=== PATIENT | female | born 1985 | race African-American/Black ===

== ENCOUNTER 2017-04-07 10:00 | Emergency (ER) | payer MEDICAID ==
[~2017-04-07] VITALS: Ht 154.9 cm; Wt 58.2 kg
[2017-04-07 12:22] LABS: HEMATOCRIT 35.3 % (34.6-47.8); HEMOGLOBIN 11.5 g/dL (11.7-16.4); WHITE BLOOD COUNT 5.4 x10^3/uL (3.4-10)
[2017-04-07 12:33] LABS: BLOOD UREA NITROGEN 10 mg/dL (7-18)
[2017-04-07 13:51] VITALS: BP 128/74
== END 2017-04-07 14:41 | disposition home or self-care (01) ==
LOC: ED 12:41
DX: N94.6 Dysmenorrhea, unspecified (principal)
CPT/HCPCS: 36415; 76830; 80048; 81003; 82040; 84703; 85025; 93005; 99285

== ENCOUNTER 2017-06-22 17:51 | Emergency (ER) | payer MEDICAID ==
[~2017-06-22] VITALS: Ht 154.9 cm; Wt 54.4 kg
[2017-06-22 18:29] LABS: MICROSCOPIC NOT IND
[2017-06-22 18:39] LABS: CULTURE INDICATED? NO
[2017-06-22 18:52] LABS: BASOPHILS # (AUTO) 0.03 x10^3/uL (0-0.1); BASOPHILS % (AUTO) 0 % (0-1); EOSINOPHILS # (AUTO) 0.01 x10^3/uL (0-0.4); EOSINOPHILS % (AUTO) 0 % (1-7); LYMPHOCYTES # (AUTO) 2.79 x10^3/uL (1-3.4); LYMPHOCYTES % (AUTO) 40 % (22-44); MD NO; MEAN CORPUSCULAR HEMOGLOBIN 26.5 pg (27.0-34.8); MEAN CORPUSCULAR HGB CONC 32.7 g/dL (32.4-35.8); MEAN CORPUSCULAR VOLUME 81.2 fL (80-100); MEAN PLATELET VOLUME 8.6 fL (7.4-10.4); MONOCYTES # (AUTO) 0.42 x10^3/uL (0.2-0.8); MONOCYTES % (AUTO) 6 % (2-9); NEUTROPHILS # (AUTO) 3.72 x10^3/uL (1.8-6.8); NEUTROPHILS % (AUTO) 53 % (42-75); PLATELET COUNT 360 x10^3/uL (130-400); RED BLOOD COUNT 4.39 x10^6/uL (3.82-5.3); RED CELL DISTRIBUTION WIDTH 17.2 % (9.6-15.2)
[2017-06-22 18:59] LABS: ALANINE AMINOTRANSFERASE 18 U/L (12-78); ALBUMIN 3.9 g/dL (3.4-5.0); ANION GAP 7 mmol/L (5-15); CHLORIDE 107 mmol/L (98-107); CREATININE 0.73 mg/dL (0.55-1.02)
[2017-06-22 19:03] LABS: ALKALINE PHOSPHATASE 66 U/L (45-117); BILIRUBIN,TOTAL 0.4 mg/dL (0.2-1.0); TOTAL PROTEIN 7.7 g/dL (6.4-8.2)
[2017-06-22 19:14] VITALS: BP 118/67
== END 2017-06-22 19:29 | disposition home or self-care (01) ==
LOC: ED 19:05
DX: R10.33 Periumbilical pain (principal); R10.2 Pelvic and perineal pain; Z87.891 Personal history of nicotine dependence
CPT/HCPCS: 36415; 76856; 80053; 81003; 84703; 85025; 99285

== ENCOUNTER 2017-10-31 12:01 | Emergency (ER) | payer MEDICAID ==
[~2017-10-31] VITALS: Ht 154.9 cm; Wt 52.8 kg
[2017-10-31 14:09] LABS: ALBUMIN 3.6 g/dL (3.4-5.0); ANION GAP 5 mmol/L (5-15); CALCIUM 8.4 mg/dL (8.5-10.1); CHLORIDE 109 mmol/L (98-107); CREATININE 0.68 mg/dL (0.55-1.02)
[2017-10-31 14:18] VITALS: BP 112/59
[2017-10-31 14:27] LABS: BASOPHILS # (AUTO) 0.03 x10^3/uL (0-0.1); BASOPHILS % (AUTO) 1 % (0-1); EOSINOPHILS # (AUTO) 0.02 x10^3/uL (0-0.4); EOSINOPHILS % (AUTO) 0 % (1-7); LYMPHOCYTES # (AUTO) 1.76 x10^3/uL (1-3.4); LYMPHOCYTES % (AUTO) 35 % (22-44); MD NO; MEAN CORPUSCULAR HEMOGLOBIN 26.4 pg (27.0-34.8); MEAN CORPUSCULAR HGB CONC 32.4 g/dL (32.4-35.8); MEAN CORPUSCULAR VOLUME 81.6 fL (80-100); MEAN PLATELET VOLUME 9.4 fL (7.4-10.4); MONOCYTES # (AUTO) 0.47 x10^3/uL (0.2-0.8); MONOCYTES % (AUTO) 9 % (2-9); NEUTROPHILS # (AUTO) 2.76 x10^3/uL (1.8-6.8); NEUTROPHILS % (AUTO) 55 % (42-75); PLATELET COUNT 302 x10^3/uL (130-400); RED BLOOD COUNT 4.53 x10^6/uL (3.82-5.3); RED CELL DISTRIBUTION WIDTH 16.2 % (9.6-15.2)
== END 2017-10-31 14:49 | disposition home or self-care (01) ==
LOC: ED 14:43
DX: T14.8XXA Other injury of unspecified body region, initial encounter (principal); R04.0 Epistaxis; X58.XXXA Exposure to other specified factors, initial encounter; Y93.89 Activity, other specified; Y92.89 Other specified places as the place of occurrence of the external cause; Y99.8 Other external cause status
CPT/HCPCS: 36415; 80048; 82040; 85025; 99284

== ENCOUNTER 2018-10-25 11:40 | Emergency (ER) | payer MEDICAID, OTHER ==
[~2018-10-25] VITALS: Ht 152.4 cm; Wt 54.0 kg
[2018-10-25 12:08] VITALS: BP 145/95
[2018-10-25 12:43] LABS: BASOPHILS # (AUTO) 0.02 x10^3/uL (0-0.1); BASOPHILS % (AUTO) 0 % (0-1); EOSINOPHILS # (AUTO) 0.01 x10^3/uL (0-0.4); EOSINOPHILS % (AUTO) 0 % (1-7); LYMPHOCYTES # (AUTO) 1.74 x10^3/uL (1-3.4); LYMPHOCYTES % (AUTO) 30 % (22-44); MD NO; MEAN CORPUSCULAR HEMOGLOBIN 25.5 pg (27.0-34.8); MEAN CORPUSCULAR HGB CONC 31.9 g/dL (32.4-35.8); MEAN CORPUSCULAR VOLUME 79.9 fL (80-100); MEAN PLATELET VOLUME 8.7 fL (7.4-10.4); MONOCYTES # (AUTO) 0.49 x10^3/uL (0.2-0.8); MONOCYTES % (AUTO) 9 % (2-9); NEUTROPHILS % (AUTO) 61 % (42-75); PLATELET COUNT 359 x10^3/uL (130-400); RED CELL DISTRIBUTION WIDTH 17.3 % (9.6-15.2)
[2018-10-25 12:51] LABS: ALBUMIN 3.7 g/dL (3.4-5.0); ANION GAP 5 mmol/L (5-15); CALCIUM 8.4 mg/dL (8.5-10.1); CHLORIDE 108 mmol/L (98-107); CREATININE 0.69 mg/dL (0.55-1.02)
== END 2018-10-25 13:17 | disposition home or self-care (01) ==
LOC: ED 12:25
DX: S40.022A Contusion of left upper arm, initial encounter (principal); R58 Hemorrhage, not elsewhere classified; X58.XXXA Exposure to other specified factors, initial encounter; Y93.89 Activity, other specified; Y92.89 Other specified places as the place of occurrence of the external cause; Y99.8 Other external cause status
CPT/HCPCS: 36415; 80048; 82040; 85025; 99283

== ENCOUNTER 2019-05-08 19:29 | Emergency (ER) | payer MEDICAID ==
[~2019-05-08] VITALS: Ht 165.1 cm; Wt 101.4 kg
[2019-05-08 19:38] VITALS: BP 143/108
--- NOTE | 2019-05-08 19:49 | NUR ---
CALLED FOR ROOM, NO ANSWER AT THIS TIME
--- NOTE | 2019-05-08 19:53 | NUR ---
PT TO ROOM 34 AT THIS TIME
[2019-05-08] MEDS ORDERED: KETOROLAC 30 MG/1 ML ONE (20:20)
--- NOTE | 2019-05-08 20:25 | NUR ---
PT CAME IN CO OF RIGHT SHOULDER PAIN. WAS WRESTLING WITH BROTHER AND LANDED ON IT. X RAY COMPLETE. PAIN MEDS GIVEN.
[2019-05-08] MEDS ORDERED: KETOROLAC 30 MG/1 ML IM ONE (20:30)
== END 2019-05-08 21:17 | disposition home or self-care (01) ==
LOC: ED 20:37
DX: S40.011A Contusion of right shoulder, initial encounter (principal); F17.210 Nicotine dependence, cigarettes, uncomplicated; W19.XXXA Unspecified fall, initial encounter; Y93.89 Activity, other specified; Y92.098 Other place in other non-institutional residence as the place of occurrence of the external cause; Y99.8 Other external cause status
CPT/HCPCS: 73000; 73030; 96372; 99283; J1885

== ENCOUNTER 2020-08-09 20:48 | Emergency (ER) | payer MEDICAID ==
[~2020-08-09] VITALS: Ht 154.9 cm; Wt 65.0 kg
[2020-08-09] MEDS ORDERED: ONDANSETRON 2MG/ML, 2ML ONE (20:52)
[2020-08-09] MEDS ORDERED: NALOXONE 1 MG/ML, 2ML ONE (20:52)
[2020-08-09] MEDS ORDERED: ONDANSETRON 2MG/ML, 2ML IVPush ONE (21:00)
[2020-08-09] MEDS ORDERED: NALOXONE 1 MG/ML, 2ML IVPush ONE (21:00)
--- NOTE | 2020-08-09 21:11 | NUR ---
SAFETY PRECAUTIONS IMPLEMENTED. SUCTION AT BED SIDE. BED IN LOW POSITION.
--- NOTE | 2020-08-09 21:11 | NUR ---
BIBA. FOUND DOWN ON [place] ON SOMEONES LAWN. ALCOHOL BOTTLES FOUND IN PTS BAG. 2 MG OF NARCAN, 4MG OF ZOFRAN. IV IN RT AC. PINPOINT PUPILS. BS 161. VITALS STABLE. ATTACHED TO MONITORS. EKG DONE. ON 2 L NC. UNABLE TO ANSWER ANY QUESTIOONS DUE TO INTOXICATION.
[2020-08-09 21:12] LABS: BASOPHILS % (AUTO) 1 % (0-1); EOSINOPHILS % (AUTO) 1 % (1-7); LYMPHOCYTES % (AUTO) 47 % (22-44); MEAN CORPUSCULAR HEMOGLOBIN 27.7 pg (27.0-34.8); MEAN CORPUSCULAR HGB CONC 33.1 g/dL (32.4-35.8); MEAN PLATELET VOLUME 7.9 fL (7.4-10.4); MONOCYTES % (AUTO) 6 % (2-9); NEUTROPHILS % (AUTO) 46 % (42-75); PLATELET COUNT 426 x10^3/uL (130-400); RED BLOOD COUNT 4.73 x10^6/uL (3.82-5.3); RED CELL DISTRIBUTION WIDTH 16.8 % (9.6-15.2)
[2020-08-09 21:15] LABS: MD NO
[2020-08-09 21:23] LABS: ANION GAP 9 mmol/L (5-15); CHLORIDE 111 mmol/L (98-107); CREATININE 0.75 mg/dL (0.55-1.02)
--- NOTE | 2020-08-09 21:47 | NUR ---
PT RESTING IN BED. VSS.
[2020-08-09] MEDS ORDERED: SODIUM CHLORIDE 0.9% 1,000 ML IV ONE (22:00)
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
[2020-08-09 22:45] VITALS: BP 111/64
--- NOTE | 2020-08-09 23:01 | NUR ---
Report received from AURA Caldera. This RN to assume care.
--- NOTE | 2020-08-09 23:26 | NUR ---
Patient sleeping in gurney. Respirations even and unlabored.
--- NOTE | 2020-08-10 00:18 | NUR ---
Patient woke up; walked to bathroom; ambulated with a steady gait. Discharge instructions given. All questions and concerns addressed. Belongings with patient. Shirt and taxi voucher given.
== END 2020-08-10 00:20 | disposition home or self-care (01) ==
LOC: ED 21:18
DX: G92 Toxic encephalopathy (principal); F10.20 Alcohol dependence, uncomplicated; I44.0 Atrioventricular block, first degree; Y90.0 Blood alcohol level of less than 20 mg/100 ml
CPT/HCPCS: 36415; 80048; 80320; 85025; 93005; 96374; 96375; 99284; J2310; J2405; G0480